=== PATIENT | male | born 1950 | race Caucasian/White ===

== ENCOUNTER 2019-12-26 19:20 | Inpatient (IN) | payer MEDICARE ==
[~2019-12-26 19:20] MED LIST: Iopamidol-370 76% 500 ML 1 ML ONE
[2019-12-26 19:47] LABS: #Basophils 0.1 thou/uL (0.0-0.2); #Eosinphils 0.2 thou/uL (0.0-0.7); #Lymphocytes 2.2 thou/uL (1.20-3.40); #Monocytes 0.8 thou/uL (0.11-0.59); #Neutrophils 6.3 thou/uL (1.40-6.50); %Basophils 0.9 % (0.0-1.0); %Eosinophils 2.4 % (0.0-10.0); %Lymphocytes 23.2 % (21.0-51.0); %Monocytes 8.1 % (0.0-10.0); %Neutrophils 65.5 % (42.0-75.0); Hemoglobin 15.6 g/dL (14.0-18.0); Mean Corpuscular HGB CONC 33.4 g/dL (32.0-36.0); Mean Corpuscular Hemoglobin 32.3 pg (27.0-31.0); Mean Corpuscular Volume 96.5 fL (78.0-98.0); Mean Platelet Volume 8.1 fL (7.4-10.4); Platelet Count 231 thou/uL (130-400); RBC Distribution Width 11.9 % (11.5-14.5); Red Blood Cell (RBC) Count 4.84 mill/uL (4.70-6.10); White Blood Cell (WBC) Count 9.7 thou/uL (4.8-10.8)
[2019-12-26 19:52] LABS: INR-International Normal Ratio 0.9; PTT 26.4 SEC (22.9-36.1)
[2019-12-26 20:07] LABS: ALT (SGPT) 21 U/L (8-55); AST (SGOT) 14 U/L (5-34); Albumin 4.1 g/dL (3.4-4.8); Alkaline Phosphatase 83 U/L (40-110); Anion Gap 14 mmol/L (10-20); BUN (Urea Nitrogen) 13 mg/dL (8.4-25.7); Bilirubin, Total 0.4 mg/dL (0.2-1.2); Calc. Creatinine Clearance 0 mL/min (70-130); Calcium 9.3 mg/dL (7.8-10.44); Carbon Dioxide 26 mmol/L (23-31); Chloride 105 mmol/L (98-107); Estimated GFR-MDRD 69; Globulin 2.8 g/dL (2.4-3.5); Glucose 110 mg/dL (80-115); Potassium 3.8 mmol/L (3.5-5.1); Protein, Total 6.9 g/dL (5.8-8.1); Sodium 141 mmol/L (136-145)
--- NOTE | 2019-12-26 20:17 | PDOC.FPRHP ---
- History of Present Illness Chief Complaint: Left sided weakness History of Present Illness: This is a 69 yo male with a pmh of spinocerebellar ataxia who presents to the ED with a cc of left sided weakness.H michlee states these symptoms started at 1030 this AM and the symptoms presented suddenly. He states he was walking the dog and his left side became weak and he started dragging his foot on the left feet by the end of the walk. He states his symptoms have improved at this time. He reports he has a baseline instablility and slurred speech but this is much worse. He as never had anything like this. He reports word finding difficulty in that he can think of what he wants to say but is sluggish and slurred at getting them out. ED Course: Aspirin 325 mg - History PMHx: Spinocerebellar ataxia PSHx: None FHx: Noncontributory Social: Smokes herbs, denies alcohol or tobacco use - Review of Systems General: denies: fever/chills, weight/appetite/sleep changes, night sweats, fatigue Eyes: denies: eye pain, vision changes ENT: denies: nasal congestion, rhinorrhea Respiratory: denies: cough, congestion, shortness of breath, exercise intolerance Cardiovascular: denies: chest pain, palpitation, edema, paroxysmal nocturnal dyspnea, orthopnea Gastrointestinal: denies: nausea, vomiting, diarrhea, constipation, abdominal pain, GI bleeding Genitourinary: denies: incontinence, dysuria Skin: denies: rashes, lesions Musculoskeletal: denies: pain, tenderness, stiffness Neurological: reports: weakness (left side), other (dysarthria). denies: numbness, syncope, seizure Psychological: denies: anxiety, depression - Vital signs BP: 14/-73 HR: 77 RR: 17 Tmax: 98.5 Pox: 98% on ra Wt: 72 kg - Physical Exam Constitutional: NAD, awake, alert and oriented, well developed HEENT: normocephalic and atraumatic, PERRLA, EOMI, grossly normal vision, grossly normal hearing, MMM Neck: supple, FROM, no JVD Chest: no-tender to palpation, no lesions Heart: RRR, normal S1/S2, no murmurs/rubs/gallops, pulses present, no edema Lungs: CTAB, no respiratory distress, good air movement, no rales/rhonchi, no wheezing, no retractions Abdomen: soft, non-tender, bowel sounds present, no masses/distention Musculoskeletal: normal structure, normal tone Neurological: CN II-XII intact, normal sensation -Neurological: Pt had 4/5 strength globally, HINTS exam was negative, cerebellar testing in the upper extremity was slow bilaterally but accurate, no changes in sensation, speech appeared slurred Skin: good turgor, capillary refill <2 seconds Heme/Lymphatic: no unusual bruising or bleeding Psychiatric: normal mood and affect FMR H&P: Results - Labs Result Diagrams: 12/26/19 19:32 12/26/19 19:32 Lab results: WBC 9.7 thou/uL (4.8-10.8) 12/26/19 19:32 Hgb 15.6 g/dL (14.0-18.0) 12/26/19 19:32 Hct 46.7 % (42.0-52.0) 12/26/19 19:32 MCV 96.5 fL (78.0-98.0) 12/26/19 19:32 Plt Count 231 thou/uL (130-400) 12/26/19 19:32 Neutrophils % 65.5 % (42.0-75.0) 12/26/19 19:32 Sodium 141 mmol/L (136-145) 12/26/19 19:32 Potassium 3.8 mmol/L (3.5-5.1) 12/26/19 19:32 Chloride 105 mmol/L (98-107) 12/26/19 19:32 Carbon Dioxide 26 mmol/L (23-31) 12/26/19 19:32 BUN 13 mg/dL (8.4-25.7) 12/26/19 19:32 Creatinine 1.07 mg/dL (0.7-1.3) 12/26/19 19:32 Glucose 110 mg/dL (80-115) 12/26/19 19:32 Calcium 9.3 mg/dL (7.8-10.44) 12/26/19 19:32 Total Bilirubin 0.4 mg/dL (0.2-1.2) 12/26/19 19:32 AST 14 U/L (5-34) 12/26/19 19:32 ALT 21 U/L (8-55) 12/26/19 19:32 Alkaline Phosphatase 83 U/L (40-110) 12/26/19 19:32 Serum Total Protein 6.9 g/dL (5.8-8.1) 12/26/19 19:32 Albumin 4.1 g/dL (3.4-4.8) 12/26/19 19:32 - EKG Interpretation EKG: NSR, 75 BPM - Radiology Interpretation CT scan - head Status: report reviewed by me (CT/CTA negative for acute intracranial processes) FMR H&P: A/P - Problem List (1) TIA (transient ischemic attack) Current Visit: Yes Status: Acute Code(s): G45.9 - TRANSIENT CEREBRAL ISCHEMIC ATTACK, UNSPECIFIED - Plan TIA vs CVA r/o -Admit to stroke with telemetry -S/P aspirin -Improving physical findings points to TIA -Outside the window for tPA but would not likely be a candidate based on symptom severity -Pending AM FLP, MRI -Consult Speech, OT/PT -Pt does not have indication for TTE at this time given his lack of cardiac history and this being his first TIA/CVA r/o. I would consider ordering this if his MRI showed bilateral ischemic involvement Spinocerebellar ataxia -Appears stable Code: Full Prophylaxis: None Family: None at bedside Fluids: SL Diet: NPO until bedside swallow, then HH diet Disposition: DC in 1-2 days PCP: none, CC FMR H&P: Upper Level - Plan Date/Time: 12/26/192011 I, [], have evaluated this patient and agree with findings/plan as outlined by operations intern resident. Pertinent changes/additions are listed here. Addendum - Attending - Attending Attestation Date/Time: 12/27/19 0030 I personally evaluated the patient and discussed the management with Dr. Jain. I agree with the History, Examination, Assessment and Plan documented above with any addition or exceptions noted below.
[2019-12-26] MEDS ORDERED: Aspirin 325 MG TAB ONE (20:27)
--- NOTE | 2019-12-26 20:30 | CT ---
CT OF THE BRAIN WITHOUT CONTRAST: 12/26/19 COMPARISON: None. HISTORY: Stroke alert with facial drooping and slurred speech since 9 o'clock this morning. TECHNIQUE: Multiple contiguous axial images were obtained in a CT of the brain without contrast. FINDINGS: there are a few scattered hypodensities in the subcortical and periventricular white matter likely se condary to small vessel ischemic disease. No large confluent infarction is seen. There is no evidence of hydrocephalus, intracranial hemorrhage, or extra-axial fluid collection. The calvarium and overlying soft tissues are unremarkable. The visualized paranasal sinuses and masto id air cells are well aerated. IMPRESSION: No evidence of acute intracranial abnormality. Dr. He notified of the findings at 7:38 p.m. on 12/26/19. POS: KENIA
--- NOTE | 2019-12-26 20:43 | CT ---
CTA OF THE NECK WITH CONTRAST CTA OF THE HEAD WITH CONTRAST 12/26/19 HISTORY: Facial drooping and slurred speech. Left sided weakness. TECHNIQUE: 1. Multiple contiguous axial images were obtained in a CTA of the neck with contrast. 3D sagitta l and coronal MIP reformats were performed. 2. Multiple contiguous axial images were obtained in a CTA of the head with contrast. 3D sagitta l and coronal MIP reformats were performed. FINDINGS: CTA NECK: The lung apices are unremarkable. No cervical adenopathy is seen. No mucosal abnormality is seen. Deg enerative changes are seen in the spine. Both subclavian arteries are patent without significant atherosclerotic disease. The common carotid a rteries show no significant ostial atherosclerotic disease. There is a small amount of plaque in the proximal aspect of both internal carotid arteries. There is approximately 20% stenosis of the proximal right internal carotid artery and less than 10% stenosis o f the proximal left internal carotid artery per NASCET criteria. The distal aspect of both cervical i nternal carotid arteries are unremarkable. Both vertebral arteries are normal in appearance without significant atherosclerotic disease. CTA HEAD: Both intracranial internal carotid arteries are normal in appearance and branch into normal appearing anterior and middle cerebral arteries. There is no evidence of focal stenosis, occlusion or aneurysm al dilatation in the anterior circulation. Both vertebral arteries form a normal appearing basilar artery. The posterior cerebral arteries and c erebellar arteries are patent. There is no evidence of focal stenosis, occlusion, or aneurysmal dilat ation in the posterior circulation. The left vertebral artery is dominant. IMPRESSION: 1. Mild atherosclerotic disease in the proximal aspects of both internal carotid arteries withou t evidence of hemodynamically significant stenosis. 2. No evidence of significant CTA abnormality of the head. POS: KENIA
[2019-12-26] MEDS ORDERED: Acetaminophen 650 MG Suppository PR PRN (21:41)
[2019-12-26] MEDS ORDERED: Ondansetron ODT 4 MG TAB PO PRN (21:41)
[2019-12-26] MEDS ORDERED: Ondansetron PF 4 MG/2 ML Vial IVP PRN (21:41)
[2019-12-26] MEDS ORDERED: Acetaminophen 325 MG TAB PO PRN (21:41)
[2019-12-26] MEDS ORDERED: Atorvastatin Calcium 40 MG TAB PO SCH (22:00)
[2019-12-27 03:52] VITALS: BMI 31.3
[2019-12-27 05:02] LABS: Cardiac Risk 4.5 (Less than 4.5)
[2019-12-27] MEDS ORDERED: Lorazepam 0.5 MG TAB PO SCH (05:45)
--- NOTE | 2019-12-27 06:06 | PDOC.FM ---
- Subjective Subjective: Pt expresses that he feels his symptoms are much improved since yesterday. Unsure if he still is experiencing foot drop as he has not ambulated since admission. Feels his speech is essentially at baseline. Denies being on any anti -hypertensives. - Objective Vital Signs & Weight: Vital Signs (12 hours) Temp Pulse Resp BP Pulse Ox 12/27/19 00:28 98 F 63 16 185/100 H 94 L Weight Weight 94.755 kg Result Diagrams: 12/26/19 19:32 12/26/19 19:32 Phys Exam - Physical Examination Constitutional: NAD HEENT: moist MMs Neck: full ROM Respiratory: clear to auscultation bilateral Cardiovascular: RRR Slightly slurred speech (baseline per pt), mild dysmetria of BUE Normal strength testing throughout Psychiatric: normal affect, A&O x 3 Skin: no rash Dx/Plan (1) TIA (transient ischemic attack) Code(s): G45.9 - TRANSIENT CEREBRAL ISCHEMIC ATTACK, UNSPECIFIED Status: Acute (2) Spinocerebellar ataxia Code(s): G11.8 - OTHER HEREDITARY ATAXIAS Status: Acute - Plan Plan: TIA vs CVA r/o vs Spinocerebellar Ataxia Exacerbation -Head CT and Head/Neck CTA only significant for mild atherosclerosis of bilateral prox ICA -Improved sx favors TIA -Pending MRI and Echo -Consult Speech, OT/PT -ASA Hypertension - No previous diagnosis - Will allow 24 hr permissive HTN - Then initiate Rx to normalize Code: Full Prophylaxis: None Family: None at bedside Fluids: SL Diet: HH Disposition: DC in 1-2 days PCP: none, CC Addendum - Attending - Attending Attestation Date/Time: 12/27/19 1020 I personally evaluated the patient and discussed the management with Dr. Nieto. I agree with the History, Examination, Assessment and Plan documented above with any addition or exceptions noted below. Patient here for acute neuro deficits in setting of chronic neuro disease. MRI pending. Await those results, consider TIA versus CVA, or flare in his chronic spinocerebellar disease. He is now at baseline. Likely neuro consult as this patient has not followed with them outpatient [facility].
[2019-12-27] MEDS: Aspirin 81 mg Enteric Coated Tablet PO SCH (08:32)
[2019-12-27] MEDS: Enoxaparin Sodium 40 MG/0.4 ML SYRINGE SC SCH (08:33)
[2019-12-27] MEDS: Lisinopril 10 MG TAB PO SCH (08:33)
[2019-12-27] MEDS ORDERED: Lisinopril 10 MG TAB PO SCH (09:00)
--- NOTE | 2019-12-27 11:44 | MRI ---
EXAM: MRI Brain WO Con PROVIDED CLINICAL HISTORY: Left-sided weakness. TIA COMPARISON: CT head on 12/26/2019. FINDINGS: There is a linear area of restricted diffusion seen within the right frontal lobe medeiros radiata at t he level of the body of the lateral ventricles and involving the most superior aspect posterior limb right internal capsule. This may represent a more subacute white matter infarction as opposed to acute infarction. No additional restricted diffusion is seen to suggest additional areas of acute infarction. A few minimal scattered punctate areas of increased FLAIR and T2-weighted signal intensity are seen i n the periventricular and subcortical white matter which are nonspecific but likely reflective of mild chronic small vessel ischemic changes. The septum pellucidum and third ventricle are in the midline. The ventricular system is normal in siz e, shape, and position. Mild cerebral and cerebellar volume loss is present. Appropriate flow voids are demonstrated in the large intracranial vessels at the base of the brain. The orbits, paranasal sinuses, and skull base have a normal MRI appearance. IMPRESSION: 1. Small acute to subacute right frontal lobe white matter infarction. No acute cortical infarction i s seen. 2. Mild chronic small vessel ischemic changes. 3. Cerebral and cerebellar volume loss.
[2019-12-27] MEDS: Atorvastatin Calcium 40 MG TAB PO SCH (20:50)
--- NOTE | 2019-12-28 05:17 | PDOC.FM ---
- Subjective Subjective: Patient was resting comfortably in bed at the time of evaluation and denied any acute overnight events, particularly with regard to worsening neurologic defecits, chest pain or SOB. - Objective Vital Signs & Weight: Vital Signs (12 hours) Temp Pulse Resp BP Pulse Ox 12/28/19 04:42 93 L 12/28/19 03:10 97.5 F L 75 20 126/78 93 L 12/27/19 23:10 97.9 F 77 20 126/87 96 12/27/19 19:02 98.2 F 84 20 134/82 93 L Weight Weight 94.755 kg I&O: 12/26/19 12/27/19 12/28/19 06:59 06:59 06:59 Intake Total 480 Output Total 500 120 Balance -500 360 Result Diagrams: 12/26/19 19:32 12/28/19 05:56 Phys Exam - Physical Examination Constitutional: NAD HEENT: PERRLA, moist MMs, sclera anicteric, oral pharynx no lesions Neck: no nodes, supple, full ROM Respiratory: no wheezing, no rales, no rhonchi, clear to auscultation bilateral Cardiovascular: RRR, no significant murmur, no rub Gastrointestinal: soft, non-tender, no distention, positive bowel sounds Musculoskeletal: no edema, pulses present Neurological: moves all 4 limbs Decreased dethistler operator strength and leg raise on the left Lymphatic: no nodes Psychiatric: normal affect, A&O x 3 Skin: no rash Dx/Plan (1) Spinocerebellar ataxia Code(s): G11.8 - OTHER HEREDITARY ATAXIAS Status: Acute (2) CVA (cerebral vascular accident) Code(s): I63.9 - CEREBRAL INFARCTION, UNSPECIFIED Status: Acute - Plan Plan: Patient is a 69 y/o male with a PMH significant for Spinocerebellar Ataxia who presents for evaluation of worsening left-sided weakness and difficulty w/ word finding. 1. CVA -CT Brain/CTA Head & Neck: Mild atherosclerosis of bilateral proximal ICAs -MRI: Frontal Infarct, acute vs. sub-acute -Echo: EF(60-65%) -Neuro: Consulted, recs appreciated -Speech Therapy: Consulted, recs appreciated -PT/OT: Recs appreciated -Case Management: s/p Acute Care Screen ordered, recs appreciated -Statin, ASA 2. HTN -SBPs in the 160s to 180s upon admission -Currently well-controlled -Initiated Lisinopril 10 mg PO daily -Will continue to monitor and titrate medication regimen as needed 3. Spinocerebellar Ataxia -Known diagnosis since ~1999 -Patient does not currently receive medication or therapy -Will continue to monitor closely PCP: CC Code: Full Diet: Heart Healthy VTE PPx: None Fluids: SL Diet: HH Dispo: Patient is currently stable and admitted to the Stroke Floor for ongoing treatment of CVA. Will await recs as per above and continue to monitor BP closely. Expected LOS < 48H. Addendum - Attending - Attending Attestation Date/Time: 12/28/19 5701 I personally evaluated the patient and discussed the management with Dr. Rosen I agree with the History, Examination, Assessment and Plan documented above with any addition or exceptions noted below. Patient is a 69 y/o male with a PMH significant for Spinocerebellar Ataxia found to have CVA. Pending inpatient rehab placement. ASA, Statin. Will await Neurology recommendations and anticipate transfer to inpatient rehab.
[2019-12-28 06:26] LABS: Anion Gap 14 mmol/L (10-20); BUN (Urea Nitrogen) 15 mg/dL (8.4-25.7); Calc. Creatinine Clearance 98 mL/min (70-130); Calcium 8.9 mg/dL (7.8-10.44); Carbon Dioxide 24 mmol/L (23-31); Chloride 104 mmol/L (98-107); Estimated GFR-MDRD 76; Glucose 92 mg/dL (80-115); Potassium 3.5 mmol/L (3.5-5.1); Sodium 138 mmol/L (136-145)
[2019-12-28] MEDS: Lisinopril 10 MG TAB PO SCH (08:18)
[2019-12-28] MEDS: Aspirin 81 mg Enteric Coated Tablet PO SCH (08:18)
[2019-12-28] MEDS: Enoxaparin Sodium 40 MG/0.4 ML SYRINGE SC SCH (08:18)
--- NOTE | 2019-12-28 13:02 | CON ---
DATE OF CONSULTATION: 12/28/2019 REASON FOR CONSULTATION: Left-sided weakness. HISTORY OF PRESENT ILLNESS: Mr. Al Brock is a 69-year-old male with medical history significant for spinocerebellar ataxia, presented to the emergency room with complaint of left-sided weakness. Per the patient, he was walking the dog and then his left side became weak, and he started dragging his left foot. This happened around 9 a.m. on 12/26/2019, and then when he came to the house at around 10:30 a.m., he felt much better, but still feels weak on the left side from the baseline. He denies any focal numbness, nausea, vomiting, dizziness, vertigo, or headache, associated with the episode. He does admit to having word-finding difficulty and slurred speech, which resolved within an hour and a half. In the emergency room, he was given aspirin and admitted for further stroke workup. PAST MEDICAL HISTORY: Spinocerebellar ataxia. PAST SURGICAL HISTORY: None. FAMILY HISTORY: No family history of stroke. SOCIAL HISTORY: Smokes but denies alcohol or illegal drug use. ALLERGIES: Oats REVIEW OF SYSTEMS: All 10 systems were reviewed and were negative except for pertinent positive mentioned in the HPI. MEDICATIONS: None - Objective Vital Signs & Weight: Vital Signs (12 hours) Temp Pulse Resp BP Pulse Ox 12/28/19 04:42 93 L 12/28/19 03:10 97.5 F L 75 20 126/78 93 L 12/27/19 23:10 97.9 F 77 20 126/87 96 12/27/19 19:02 98.2 F 84 20 134/82 93 L Weight Weight 94.755 kg I&O: 12/26/19 12/27/19 12/28/19 06:59 06:59 06:59 Intake Total 480 Output Total 500 120 Balance -500 360 - Labs Result Diagrams: 12/26/19 19:32 12/26/19 19:32 Lab results: WBC 9.7 thou/uL (4.8-10.8) 12/26/19 19:32 Hgb 15.6 g/dL (14.0-18.0) 12/26/19 19:32 Hct 46.7 % (42.0-52.0) 12/26/19 19:32 MCV 96.5 fL (78.0-98.0) 12/26/19 19:32 Plt Count 231 thou/uL (130-400) 12/26/19 19:32 Neutrophils % 65.5 % (42.0-75.0) 12/26/19 19:32 Sodium 141 mmol/L (136-145) 12/26/19 19:32 Potassium 3.8 mmol/L (3.5-5.1) 12/26/19 19:32 Chloride 105 mmol/L (98-107) 12/26/19 19:32 Carbon Dioxide 26 mmol/L (23-31) 12/26/19 19:32 BUN 13 mg/dL (8.4-25.7) 12/26/19 19:32 Creatinine 1.07 mg/dL (0.7-1.3) 12/26/19 19:32 Glucose 110 mg/dL (80-115) 12/26/19 19:32 Calcium 9.3 mg/dL (7.8-10.44) 12/26/19 19:32 Total Bilirubin 0.4 mg/dL (0.2-1.2) 12/26/19 19:32 AST 14 U/L (5-34) 12/26/19 19:32 ALT 21 U/L (8-55) 12/26/19 19:32 Alkaline Phosphatase 83 U/L (40-110) 12/26/19 19:32 Serum Total Protein 6.9 g/dL (5.8-8.1) 12/26/19 19:32 Albumin 4.1 g/dL (3.4-4.8) 12/26/19 19:32 - EKG Interpretation EKG: NSR, 75 BPM - Radiology Interpretation CT scan - head Status: report reviewed by me (CT/CTA negative for acute intracranial processes) PHYSICAL EXAMINATION: CVS: Regular rate and rhythm. CHEST: Clear. ABDOMEN: Soft. NECK: No carotid bruit. NEUROLOGIC: Mental status; the patient is alert and orient to person, place, and time. Speech dysarthria. Cranial nerves 2 through 12 are intact. Motor; strength is 4+/5 on the left and 5/5 on the right. Cerebellar, slower on the left secondary to mild weakness. Reflexes 2+ bilaterally. Gait not tested, it was deferred due to the patient's safety reasons. DATA REVIEWED: I reviewed the labs which include CBC and CMP, which were essentially unremarkable. EKG showed normal sinus rhythm. I reviewed the CT scan and the CTA of the head and neck, which were negative. ASSESSMENT AND PLAN: Mr. Al Brock is consulted for left-sided weakness and slurred speech. Most of his symptoms resolved within an hour and a half, but he still has mild weakness on the left. MRI of the brain reviewed, which was consistent with a small acute to subacute right frontal lobe white matter infarction and mild chronic small-vessel changes. Echocardiogram report reviewed, which showed ejection fraction 60% to 65%, normal left atrium size. No thrombus is noted in the cardiac chambers. Neuro checks every 4 hours. Continue aspirin and statin for secondary stroke prevention. PT/OT/speech. Continue home medications. Continue medical management per primary team. We will continue to follow. Thank you for the consult. Job ID: [id number] MTDD
[2019-12-28] MEDS: Atorvastatin Calcium 40 MG TAB PO SCH (21:36)
--- NOTE | 2019-12-29 05:29 | PDOC.FM ---
- Subjective Subjective: Patient was resting comfortably in his bed at the time of evaluation. He denied any acute overnight events. - Objective Vital Signs & Weight: Vital Signs (12 hours) Temp Pulse Resp BP Pulse Ox 12/29/19 04:01 94 L 12/29/19 03:32 98.2 F 79 18 122/78 93 L 12/28/19 23:26 98.2 F 74 16 137/78 93 L 12/28/19 20:00 98.7 F 81 14 138/73 91 L Weight Weight 91.8 kg I&O: 12/27/19 12/28/19 12/29/19 06:59 06:59 06:59 Intake Total 480 240 Output Total 500 120 100 Balance -500 360 140 Result Diagrams: 12/26/19 19:32 12/28/19 05:56 Phys Exam - Physical Examination Constitutional: NAD HEENT: PERRLA, moist MMs, sclera anicteric, oral pharynx no lesions Neck: no nodes, supple, full ROM Respiratory: no wheezing, no rales, no rhonchi, clear to auscultation bilateral Cardiovascular: RRR, no significant murmur, no rub Gastrointestinal: soft, non-tender, no distention, positive bowel sounds Musculoskeletal: no edema, pulses present Mildly decreased product development actuary on left, mildly decreased strength of flexion of LLE Neurological: normal sensation, moves all 4 limbs Lymphatic: no nodes Psychiatric: normal affect Skin: no rash Dx/Plan (1) Spinocerebellar ataxia Code(s): G11.8 - OTHER HEREDITARY ATAXIAS Status: Acute (2) CVA (cerebral vascular accident) Code(s): I63.9 - CEREBRAL INFARCTION, UNSPECIFIED Status: Acute - Plan Plan: Patient is a 69 y/o male with a PMH significant for Spinocerebellar Ataxia who presents for evaluation of worsening left-sided weakness and difficulty w/ word finding. 1. CVA -CT Brain/CTA Head & Neck: Mild atherosclerosis of bilateral proximal ICAs -MRI: Frontal Infarct, acute vs. sub-acute -Echo: EF(60-65%) -Neuro: Consulted, recs appreciated -Speech Therapy: Consulted, recs appreciated -PT/OT: Consulted, recommended In-Patient Rehab -Case Management: s/p Acute Care Screen and In-Patient Rehab referral ordered, recs appreciated -Statin, ASA 2. HTN -SBPs in the 160s to 180s upon admission - currently well-controlled -Initiated Lisinopril 10 mg PO daily -Will continue to monitor and titrate medication regimen as needed 3. Spinocerebellar Ataxia -Known diagnosis since ~1999 -Patient does not currently receive medication or therapy -Will continue to monitor closely PCP: CC Code: Full Diet: Heart Healthy VTE PPx: None Fluids: SL Diet: HH Dispo: Patient is currently stable and admitted to the Stroke Floor for ongoing treatment of CVA. Will await recs as per above and continue to monitor BP closely. Expected LOS < 24H. Addendum - Attending - Attending Attestation Date/Time: 12/29/19 2860 I personally evaluated the patient and discussed the management with Dr. Rosen I agree with the History, Examination, Assessment and Plan documented above with any addition or exceptions noted below. Patient is a 69 y/o male with a PMH significant for Spinocerebellar Ataxia found to have CVA. Patient refused inpatient rehab placement but agreeable to outpt rehab. OK to d/c home with f/u as OP. Continue ASA, Statin. RA Strange
[2019-12-29] MEDS: Aspirin 81 mg Enteric Coated Tablet PO SCH (08:58)
[2019-12-29] MEDS: Lisinopril 10 MG TAB PO SCH (08:58)
[2019-12-29] MEDS: Enoxaparin Sodium 40 MG/0.4 ML SYRINGE SC SCH (08:58)
[2019-12-29 15:35] VITALS: BP 134/90; TEMP 98.4
--- NOTE | 2019-12-30 01:40 | DIS ---
DATE OF ADMISSION: 12/27/2019 DATE OF DISCHARGE: 12/29/2019 RESIDENT: Pako Rosen MD ADMITTING ATTENDING: Hany Alberto MD DISCHARGE ATTENDING: Dami Strange MD CONSULTS: Vashti Hutchison MD, Neurology. PROCEDURES PERFORMED: Brain CT revealing no evidence of acute intracranial abnormality. CT angiography indicating mild atherosclerotic disease in the proximal aspect of both internal carotid arteries without evidence of hemodynamically significant stenoses. No evidence of significant CTA abnormality. Brain MRI, small acute subacute right frontal lobe white matter infarction, mild chronic small-vessel ischemic changes, cerebellar and cerebral volume loss. PRIMARY DIAGNOSIS: Cerebrovascular accident. SECONDARY DIAGNOSES: Hypertension, spinocerebellar ataxia. DISCHARGE MEDICATIONS: 1. Aspirin 81 mg p.o. daily. 2. Atorvastatin 40 mg p.o. daily. 3. Lisinopril 10 mg p.o. daily. DISCONTINUED MEDICATIONS: 1. Acetaminophen 650 mg p.o. q.4 hours p.r.n. 2. Lovenox 40 mg subcutaneous daily. HISTORY OF PRESENT ILLNESS/HOSPITAL COURSE: The patient is a 69-year-old male with a past medical history significant for spinocerebellar ataxia, presented to the ED with a chief complaint of left-sided weakness. The patient stated that the symptoms started at approximately 10:30 in the morning prior to presentation and that they began suddenly. The patient states that he was walking his dog and the left side became weak and he started dragging his foot on the left. He was experiencing some certain difficulty walking. His symptoms began to improve by the time he returned home. However, he reports baseline instability and slurred speech due to his previously diagnosed spinocerebellar ataxia, but he stated that this episode was much worse. He also admitted to difficulty with word finding. Upon presentation to the ER, he was given 325 mg of aspirin and subsequently transferred to the Stroke Unit. While in a stroke unit, the patient was evaluated and additional imaging modalities were performed which are mentioned elsewhere in document. The patient was evaluated by Speech Therapy, PT and OT, and his condition began to improve as such he was subsequently prepped for discharge to home with outpatient physical and occupational therapy because the patient is the primary caregiver for his , who is unable to do without her attending inpatient rehabilitation prior to discharge. LABORATORY ANALYSIS: Revealed a white blood cell count of 9.7, hemoglobin 15.6, hematocrit 46.7, platelet count 231. Coagulation panel revealed a PT of 12, INR 0.9, APTT of 26.4. Chem panel revealed a sodium of 138, potassium 3.5, chloride 104, carbon dioxide 24, BUN 15, creatinine 0.98, glucose 92, calcium 8.9, AST 14, ALT 21, troponin 0.01, triglycerides 149, cholesterol 170, LDL 102, and HDL 38. DISPOSITION: Stable. DISCHARGE INSTRUCTIONS: 1. Location: Home. 2. Diet: Heart healthy. 3. Activity: No restrictions. 4. Followup: The patient will be evaluated further as an outpatient with [facility] physical therapy later in the week. Additionally, the patient was encouraged to follow up with primary care provider in 3 to 4 weeks in order to discuss his most recent hospitalization. Job ID: [id number]
--- NOTE | 2019-12-30 15:24 | EKG ---
Test Reason : Blood Pressure : / mmHG Vent. Rate : 075 BPM Atrial Rate : 075 BPM P-R Int : 168 ms QRS Dur : 100 ms QT Int : 392 ms P-R-T Axes : 060 088 070 degrees QTc Int : 437 ms Normal sinus rhythm Normal ECG Confirmed by DARIO OLSEN, MICHAEL Solomon ([id number]), script editor XOCHILT LITTLE ([id number]) on 12/30/2019 3:23:49 PM Referred By: Confirmed By:MICHAEL BISHOP MD
== END 2019-12-29 16:07 | disposition home or self-care (01) | DRG 65 ==
LOC: ERS 19:20 → INTOOBSV 21:39 → 2SE 21:39 → OBSVTOIN 12-27 14:21
PROVIDERS: ADMIT Emergency Medicine; ATTEND Emergency Medicine
DX: I63.9 Cerebral infarction, unspecified (principal); G11.8 Other hereditary ataxias; G81.94 Hemiplegia, unspecified affecting left nondominant side; F17.200 Nicotine dependence, unspecified, uncomplicated; I10 Essential (primary) hypertension; R47.81 Slurred speech
CPT/HCPCS: 36415; 36416; 70450; 70496; 70498; 70551; 80048; 80053; 80061; 84484; 85025; 85610; 85730; 93005; 93306; J1650; Q9967

== ENCOUNTER 2020-07-18 14:30 | Observation (INO) | payer MEDICARE ==
--- NOTE | 2020-07-18 15:33 | RAD ---
Chest AP view INDICATION: Generalized weakness COMPARISON: None FINDINGS: Lungs: The lungs are clear Cardiac silhouette: The cardiomediastinal silhouette appears within normal limits. Pulmonary vasculature: Normal Pleural spaces: No pleural effusion or pneumothorax is demonstrated. Upper abdomen: No abnormality seen. Osseous structures: No acute osseous abnormality. Additional findings: None. IMPRESSION: No acute cardiopulmonary abnormality.
[2020-07-18] MEDS ORDERED: Adenosine 6 MG/2 ML VIAL ONE ×2 (15:42→17:04)
[2020-07-18 15:48] LABS: #Basophils 0.1 thou/uL (0.0-0.2); #Eosinphils 0.3 thou/uL (0.0-0.7); #Lymphocytes 2.2 thou/uL (1.20-3.40); #Monocytes 1.1 thou/uL (0.11-0.59); #Neutrophils 9.3 thou/uL (1.40-6.50); %Basophils 0.7 % (0.0-1.0); %Eosinophils 2.7 % (0.0-10.0); %Lymphocytes 16.7 % (21.0-51.0); %Monocytes 8.3 % (0.0-10.0); %Neutrophils 71.6 % (42.0-75.0); Hemoglobin 16.8 g/dL (14.0-18.0); Mean Corpuscular HGB CONC 32.4 g/dL (32.0-36.0); Mean Corpuscular Hemoglobin 32.1 pg (27.0-31.0); Mean Corpuscular Volume 98.9 fL (78.0-98.0); Mean Platelet Volume 8.1 fL (7.4-10.4); Platelet Count 269 thou/uL (130-400); RBC Distribution Width 12.1 % (11.5-14.5); Red Blood Cell (RBC) Count 5.25 mill/uL (4.70-6.10)
[2020-07-18 16:07] LABS: ALT (SGPT) 30 U/L (8-55); AST (SGOT) 21 U/L (5-34); Albumin 4.2 g/dL (3.4-4.8); Alkaline Phosphatase 99 U/L (40-110); Anion Gap 17 mmol/L (10-20); BUN (Urea Nitrogen) 17 mg/dL (8.4-25.7); Bilirubin, Total 0.5 mg/dL (0.2-1.2); Calc. Creatinine Clearance 0 mL/min (70-130); Calcium 9.3 mg/dL (7.8-10.44); Carbon Dioxide 26 mmol/L (23-31); Chloride 103 mmol/L (98-107); Globulin 2.9 g/dL (2.4-3.5); Glucose 135 mg/dL (80-115); Lipase 46 U/L (8-78); Potassium 4.3 mmol/L (3.5-5.1); Protein, Total 7.1 g/dL (5.8-8.1); Sodium 142 mmol/L (136-145)
[2020-07-18] MEDS ORDERED: Aspirin Chewable 81 MG TAB ONE (16:29)
--- NOTE | 2020-07-18 17:19 | PDOC.FPRHP ---
- History of Present Illness Chief Complaint: Palpitations History of Present Illness: Patient is a 70 yo M, PMH of CVA, spinocerebellar ataxia, HTN. He states that he started having palpiations around 11am with associated central chest pain, shortness of breath, sweating and nausea. Patient's drove him to the ER. He states that he had a similar episode that happened 8 years ago. He saw a doctor but does not think the doctor did anything or diagnose anything. Denies fever/chills, abdominal pain, urinary symptoms, vision changes. ED Course: Patient was in SVT in the 150s-170s on arrival to the ED. He was given a push of 6 mg of adenosine. He was given a liter of fluids. He successfully cardioverted to sinus tachycardia. - Allergies/Adverse Reactions Allergies Allergy/AdvReac Type Severity Reaction Status Date / Time oats Allergy Verified 12/27/19 05:42 - Home Medications Medication Instructions Recorded Confirmed Type Acetaminophen [Tylenol] 325 mg PO PRN PRN 12/27/19 07/18/20 History Aspirin [Ecotrin Low Strength] 81 mg PO DAILY 30 Days #30 tab 12/29/19 07/18/20 Rx Atorvastatin Calcium [Lipitor] 40 mg PO HS 30 Days #30 tab 12/29/19 07/18/20 Rx Lisinopril [Zestril] 10 mg PO DAILY 30 Days #30 tab 12/29/19 07/18/20 Rx Tamsulosin HCl 0.4 mg PO DAILY 07/18/20 07/18/20 History - History PMHx: H/o CVA, spinocerebellar ataxia, HTN, HLD PSHx: tonsillectomy, basal cell carcinoma removal FHx: [place] in father in 60s Social: Smokes marijuana once or twice/day, no other drugs, no alcohol or tobacco use - Review of Systems General: denies: fever/chills, weight/appetite/sleep changes Eyes: denies: eye pain, vision changes ENT: denies: nasal congestion, rhinorrhea Respiratory: reports: shortness of breath. denies: cough, congestion Cardiovascular: reports: chest pain, palpitation. denies: edema Gastrointestinal: reports: nausea. denies: vomiting, diarrhea, constipation, abdominal pain Genitourinary: denies: incontinence, dysuria Skin: denies: rashes, lesions Musculoskeletal: denies: pain, tenderness Neurological: reports: weakness. denies: numbness, syncope Psychological: denies: anxiety, depression - Vital signs BP: 111/73, Pulse: 101, Resp: 16, O2 sat: 96 on (Room Air), Wt: 95kg - Physical Exam Constitutional: NAD, awake, alert and oriented, well developed HEENT: normocephalic and atraumatic, PERRLA, EOMI, other (dry mucous membranes) Neck: supple, FROM Heart: no murmurs/rubs/gallops, other (tachycardic) Lungs: CTAB, no respiratory distress, no wheezing Abdomen: soft, non-tender, bowel sounds present Musculoskeletal: normal structure, normal tone Neurological: no focal deficit, CN II-XII intact Skin: no rash/lesions Heme/Lymphatic: no unusual bruising or bleeding, no purpura, no petechia Psychiatric: normal mood and affect, good judgment and insight, intact recent and remote memory FMR H&P: Results - Labs Result Diagrams: 07/19/20 04:19 07/19/20 04:19 Lab results: WBC 13.0 thou/uL (4.8-10.8) H 07/18/20 15:34 Hgb 16.8 g/dL (14.0-18.0) 07/18/20 15:34 Hct 51.9 % (42.0-52.0) 07/18/20 15:34 MCV 98.9 fL (78.0-98.0) H 07/18/20 15:34 Plt Count 269 thou/uL (130-400) 07/18/20 15:34 Neutrophils % 71.6 % (42.0-75.0) 07/18/20 15:34 Sodium 142 mmol/L (136-145) 07/18/20 15:34 Potassium 4.3 mmol/L (3.5-5.1) 07/18/20 15:34 Chloride 103 mmol/L (98-107) 07/18/20 15:34 Carbon Dioxide 26 mmol/L (23-31) 07/18/20 15:34 BUN 17 mg/dL (8.4-25.7) 07/18/20 15:34 Creatinine 1.37 mg/dL (0.7-1.3) H 07/18/20 15:34 Glucose 135 mg/dL (80-115) H 07/18/20 15:34 Calcium 9.3 mg/dL (7.8-10.44) 07/18/20 15:34 Total Bilirubin 0.5 mg/dL (0.2-1.2) 07/18/20 15:34 AST 21 U/L (5-34) 07/18/20 15:34 ALT 30 U/L (8-55) 07/18/20 15:34 Alkaline Phosphatase 99 U/L (40-110) 07/18/20 15:34 B-Natriuretic Peptide 42.2 pg/mL (0-100) 07/18/20 15:54 Serum Total Protein 7.1 g/dL (5.8-8.1) 07/18/20 15:34 Albumin 4.2 g/dL (3.4-4.8) 07/18/20 15:34 Lipase 46 U/L (8-78) 07/18/20 15:34 - EKG Interpretation EKG: Initial EKG: SVT in 150-170s, no ST changes Post/adenosine EKG: EKG has monomorphic p waves, a regular rhythm at about 100bpm, no st changes or QRS abnormalities FMR H&P: A/P - Plan Paroxysmal SVT, with unknown cause Suspected 2/2 Hypovolemia vs Infectious source vs Drug Use, R/o ACS, PE, Structural Abnormality Converted to Sinus Tachycardia with 6mg IVP of adenosine, no arrhythmia or ST changes on EKG Labs significant for elevated WBC count, mild elevation of Creatinine - Ordered UA, procal - TSH, a1c, lipid panel to risk stratify - DD ordered - Echo ordered - UDS ordered - will give 1L IVF, as patient appears dry - consider cards consult in am if no other cause identified KAREN, suspected 2/2 hypovolemia Cr 1.37, previously 0.98 in 12/2019 - 1L IVFs - am BMP HTN - resume home meds HLD - resume home meds Hx CVA, Spinocerebellar Ataxia - aware PCP: Bam Beckett - TAMP DVT PPx: RADHA 3 - SCDs placed Fluids: 1L IVFs Dispo: admit tele obs, LOS <48 hours FMR H&P: Upper Level - Plan Date/Time: 07/18/20 1705 I, Bear Beckett DO, have evaluated this patient and agree with findings/plan as outlined by market research intern resident. Pertinent changes/additions are listed here. 70 yo M presents with palpitations, pmhx sig for SCA and htn He reports earlier today he was watching TV when he suddenly had chest pain and palpitations. he reports this has happened once before 8 years ago without a known cause. he denies any recent medication changes, sob, dysuria, fever, chills, joint pain, intolerance to hot or cold, diarrhea or vomiting. he endorses marijuana use daily. In the ED he was noted to be in SVT, 6mg of adenosine converted him to sinus tach. labs sig for elevated wbc count and mild elevation in cr. cxr wnl. on my exam he reports he feels totally fine now. EKG has monomorphic p waves, a regular rhythm at about 100bpm, no st changes or QRS abnormalities. paroxysmal svt resolved, now sinus tach. evaluate for underlying cause, will give 1L as he is dry appearing on exam. consider cards consult in AM if no other cause is identified by our workup. admit to tele obs for ELOS<48hrs. Addendum - Attending - Attending Attestation Date/Time: 07/18/20 241 I personally evaluated the patient and discussed the management with Dr. Batista I agree with the History, Examination, Assessment and Plan documented above with any addition or exceptions noted below. 70 yo male with cardiovascular risk and disease presents for SVT. After dose of adenosine is in sinus tachycardia. Will obs overnight on tele. Continue IVFs due to associated dehydration. Would add beta lew to regiment. Due to BP might have to adjust ACEI down to 5 mg if remains low. Due to neurological events in the past could have affect on SVR. ECHO pending. Trend trops to rule out ischemia. Cards in AM if available otherwise outpatient follow up. Emely
[2020-07-18 17:43] LABS: Hemoglobin A1c 5.5 % (4.0-6.0)
[2020-07-18 17:55] LABS: Cardiac Risk 2.9 (Less than 4.5)
[2020-07-18] MEDS ORDERED: Ondansetron ODT 4 MG TAB PO PRN (18:52)
[2020-07-18] MEDS ORDERED: Acetaminophen 650 MG Suppository PR PRN (18:52)
[2020-07-18] MEDS ORDERED: Ondansetron PF 4 MG/2 ML Vial IVP PRN (18:52)
[2020-07-18] MEDS ORDERED: Acetaminophen 325 MG TAB PO PRN (18:52)
[2020-07-18 19:27] LABS: Troponin I 0.026 ng/mL (< 0.028)
[2020-07-18 21:01] VITALS: BMI 32.2
[2020-07-18] MEDS: Lactated Ringer's 1,000 ML IV SCH (21:43)
[2020-07-18 22:40] LABS: Troponin I 0.032 ng/mL (< 0.028)
[2020-07-18 23:04] LABS: Magnesium 2.1 mg/dL (1.6-2.6); Phosphorus 3.8 mg/dL (2.3-4.7)
[2020-07-19 01:34] LABS: Bilirubin Negative (Negative); Blood, Urine Negative (Negative); Clarity Clear (Clear); Glucose, Urine (Dipstick) Normal (Negative); Ketone, Urine Negative (Negative); Leukocyte Negative Leu/uL (Negative); Nitrite Negative (Negative); Protein, Urine (Dipstick) Negative (Neg-Trace); Specific Gravity, Urine 1.016 (1.002-1.036); Urobilinogen Normal mg/dL (Less than 2)
[2020-07-19 01:43] LABS: Amphetamine Not Detected (NotDetected); Barbiturates Screen Not Detected (NotDetected); Benzodiazepine Screen Not Detected (NotDetected); Cocaine Metabolite Screen Not Detected (NotDetected); Medtox Control Line Valid? VALID (VALID); Medtox Reader # READER 4; Methadone Not Detected (NotDetected); Methamphetamine Not Detected (NotDetected); Opiate Screen Not Detected (NotDetected); Oxycodone Screen Not Detected (NotDetected); Phencyclidine (PCP) Not Detected (NotDetected); THC/Cannabinoid Screen Detected (NotDetected); Tricyclic Screen Not Detected (NotDetected)
[2020-07-19] MEDS: Lactated Ringer's 1,000 ML IV SCH ×2 (04:29→09:53)
[2020-07-19 04:59] LABS: Anion Gap 13 mmol/L (10-20); BUN (Urea Nitrogen) 14 mg/dL (8.4-25.7); Calc. Creatinine Clearance 117 mL/min (70-130); Calcium 8.4 mg/dL (7.8-10.44); Carbon Dioxide 25 mmol/L (23-31); Chloride 107 mmol/L (98-107); Glucose 109 mg/dL (80-115); Potassium 3.9 mmol/L (3.5-5.1); Sodium 141 mmol/L (136-145)
[2020-07-19 05:10] LABS: Band 2 % (5-11); Eosinophils 6 % (0-10); Hemoglobin 13.9 g/dL (14.0-18.0); Lymphocytes 17 % (21-51); MDiff Complete? YES; Mean Corpuscular HGB CONC 32.4 g/dL (32.0-36.0); Mean Corpuscular Hemoglobin 31.2 pg (27.0-31.0); Mean Corpuscular Volume 96.1 fL (78.0-98.0); Mean Platelet Volume 7.8 fL (7.4-10.4); Monocytes 4 % (0-10); Neutrophil 70 % (42-75); Platelet Count 202 thou/uL (130-400); RBC Distribution Width 11.9 % (11.5-14.5); Reactive Lymphocytes 1 % (0-10); Red Blood Cell (RBC) Count 4.46 mill/uL (4.70-6.10); White Blood Cell (WBC) Count 10.1 thou/uL (4.8-10.8)
[2020-07-19 05:48] LABS: SARS-CoV-2 MS2 Positive; SARS-CoV-2 N Gene Negative; SARS-CoV-2 S Gene Negative; SARS-CoV-2 by NAA Not Detected (NotDetected); SARS-CoV-2 orf1ab Negative
--- NOTE | 2020-07-19 06:48 | PDOC.FM ---
- Subjective Subjective: Patient is resting comfortably in bed. No concerns, no acute events overnight. Denies chest pain, shortness of breath, palpitations, abdominal pain, N/V. - Objective MAR Reviewed: Yes Vital Signs & Weight: Vital Signs (12 hours) Temp Pulse Resp BP Pulse Ox 07/19/20 03:35 98.7 F 74 18 123/76 94 L 07/18/20 23:14 88 07/18/20 20:23 98.7 F 85 16 114/74 95 Weight Weight 99.065 kg I&O: 07/17/20 07/18/20 07/19/20 06:59 06:59 06:59 Intake Total 1640 Output Total 350 Balance 1290 Result Diagrams: 07/19/20 04:19 07/19/20 04:19 Phys Exam - Physical Examination Constitutional: NAD HEENT: PERRLA, moist MMs Respiratory: no wheezing, clear to auscultation bilateral Cardiovascular: RRR, no significant murmur Gastrointestinal: soft, non-tender, positive bowel sounds Musculoskeletal: no edema Neurological: non-focal, moves all 4 limbs Psychiatric: normal affect, A&O x 3 Skin: no rash Dx/Plan - Plan Plan: Paroxysmal SVT, with unknown cause Suspected 2/2 Hypovolemia, R/o Structural Abnormality Converted to Sinus Tachycardia with 6mg IVP of adenosine, no arrhythmia or ST changes on EKG Labs significant for elevated WBC count, mild elevation of Creatinine UA, TSH wnl, UDS + Cannabinoids a1c = 5.5%, lipid panel: TGs 214 DD 0.27 - Echo ordered - consider cards curbside to determine if they recommend cards eval inpatient vs outpatient KAREN, resolved Cr 1.37 --> 0.85 s/p 2L IVFs 07/18 - resolved HTN - resume home meds HLD - resume home meds Hx CVA, Spinocerebellar Ataxia - aware PCP: Bam Beckett - TAMP DVT PPx: RADHA 3 - SCDs placed Fluids: SL Dispo: admit tele obs, LOS <48 hours Addendum - Attending - Attending Attestation Date/Time: 07/19/20 1118 I personally evaluated the patient and discussed the management with Dr. Batista. I agree with the History, Examination, Assessment and Plan documented above with any addition or exceptions noted below. Patient feeling well, will discuss his pSVT with EP and further mgmt pending their recommendations. No further episodes on telemetry.
[2020-07-19] MEDS ORDERED: Metoprolol Tartrate 25 MG TAB PO SCH (08:00)
[2020-07-19] MEDS ORDERED: Aspirin 81 mg Enteric Coated Tablet PO SCH (09:00)
[2020-07-19] MEDS ORDERED: Tamsulosin HCl 0.4 MG CAP PO SCH (09:00)
[2020-07-19] MEDS ORDERED: Lisinopril 10 MG TAB PO SCH (09:00)
[2020-07-19 11:20] VITALS: BP 138/78; TEMP 98.2
[2020-07-19 11:47] LABS: Troponin I 0.015 ng/mL (< 0.028)
[2020-07-19] MEDS ORDERED: Atorvastatin Calcium 40 MG TAB PO SCH (21:00)
--- NOTE | 2020-07-20 13:50 | DIS ---
DATE OF ADMISSION: 07/18/2020 DATE OF DISCHARGE: 07/19/2020 ADMITTING ATTENDING: Dami Strange MD DISCHARGE ATTENDING: Matias Dan MD RESIDENT: Shelia Batista DO CONSULTS: None. PROCEDURES: None. PRIMARY DIAGNOSES: Paroxysmal supraventricular tachycardia, suspected 2/2 hypovolemia. SECONDARY DIAGNOSES: Acute kidney injury, resolved; hypertension; hyperlipidemia; history of cerebrovascular accident; spinocerebellar ataxia. DISCHARGE MEDICATIONS: 1. Metoprolol succinate 12.5 mg p.o. daily, 30 days. 2. Acetaminophen 325 mg p.o. p.r.n. 3. Aspirin 81 mg p.o. daily. 4. Atorvastatin 40 mg p.o. at bedtime. 5. Lisinopril 10 mg p.o. daily. 6. Tamsulosin HCL 0.4 mg p.o. daily. DISCONTINUED MEDICATIONS: None. HISTORY OF PRESENT ILLNESS/HOSPITAL COURSE: This patient is a 70-year-old male, who presented to the ED with palpitations starting around 11 a.m. and some centralized chest pain, shortness of breath, swelling, and nausea.. When he arrived, he was found to be in SVT in the 150s to 170s. He was given a push of 6 mg of adenosine and then he was given a liter of fluid, and successfully cardioverted into sinus tachycardia with no arrhythmia. The patient was admitted to [facility]. He had a mild elevation of creatinine. A1c was 5.5. Lipid panel showed triglycerides of 214. UDS was positive for cannabinoids. D-dimer was 0.27. An echo was ordered. The patient's creatinine resolved. Echo showed an EF of 50-55%. Dr. Rosas was curbsided, asked if he would rather see the patient inpatient or outpatient. He said outpatient followup in the next week was adequate. Recommended starting on a beta-lew in the interim. The patient was discharged stable, in sinus rhythm with metorpolol 12.5mg daily. DISPOSITION: Stable. DISCHARGE INSTRUCTIONS: 1. Location: Home. 2. Diet: Regular. 3. Activity: Ad marlo. 4. Follow up with RASHEEDA, Dr. Rosas in the next 7 to 14 days. Follow up with your primary care physician in 7 to 14 days. Job ID: [id number] [facility]
== END 2020-07-19 15:40 | disposition home or self-care (01) ==
LOC: ERS 14:30 → 2NO 16:44
PROVIDERS: ADMIT Family Medicine; ATTEND Family Medicine
DX: I47.1 Supraventricular tachycardia (principal); N17.9 Acute kidney failure, unspecified; I10 Essential (primary) hypertension; E78.5 Hyperlipidemia, unspecified; G11.19 Other early-onset cerebellar ataxia; Z79.82 Long term (current) use of aspirin; Z79.899 Other long term (current) drug therapy; Z86.73 Personal history of transient ischemic attack (TIA), and cerebral infarction without residual deficits; Z91.018 Allergy to other foods; Z20.828 Contact with and (suspected) exposure to other viral communicable diseases
CPT/HCPCS: 71045; 80048; 80061; 80306; 81003; 83036; 83690; 83735; 83880; 84100; 84484 ×3; 85007; 85027; 85379; 93005; 93306; 96374; 99285; G0378 ×3; U0003; 36415; 80053; 84443; 85025; 87635; J0153

== ENCOUNTER 2020-11-02 12:51 | Outpatient (CLI) | payer MEDICARE ==
[2020-11-02 13:58] LABS: Anion Gap 13 mmol/L (10-20); BUN (Urea Nitrogen) 14 mg/dL (8.4-25.7); Calc. Creatinine Clearance 0 mL/min (70-130); Calcium 9.3 mg/dL (7.8-10.44); Carbon Dioxide 27 mmol/L (23-31); Chloride 104 mmol/L (98-107); Glucose 107 mg/dL (80-115); Potassium 4.6 mmol/L (3.5-5.1); Sodium 139 mmol/L (136-145)
[2020-11-02 14:14] LABS: Mean Corpuscular HGB CONC 33.7 g/dL (32.0-36.0); Mean Corpuscular Hemoglobin 31.5 pg (27.0-33.0); Mean Corpuscular Volume 93.5 fl (81.2-95.1); Mean Platelet Volume 10.8 fl (7.4-10.4); Platelet Count 218 10x3/uL (150-450); RBC Distribution Width 12.6 % (11.5-14.5); Red Blood Cell (RBC) Count 4.76 10x6/uL (4.32-5.72); White Blood Cell (WBC) Count 9.9 10x3/uL (3.5-10.5)
[2020-11-02 15:02] LABS: PTT 25.9 sec (22.0-33.0); Prothrombin Time 10.9 sec (9.5-12.1)
[2020-11-03 13:09] LABS: SARS-CoV-2 PCR by NAA Not Detected (NotDetected)
== END 2020-11-02 12:52 | disposition home or self-care (01) ==
LOC: LABBT 12:51
PROVIDERS: ATTEND Internal Medicine Cardiovascular Disease
DX: Z01.818 Encounter for other preprocedural examination (principal); Z20.822 Contact with and (suspected) exposure to COVID-19
CPT/HCPCS: 80048; 85027; 85610; 85730; U0003; U0005; 87635; 93005; 93010

== ENCOUNTER 2020-11-07 05:49 | Day surgery (SDC) | payer MEDICARE ==
[2020-11-03 12:12] VITALS: BMI 31.0
[2020-11-07] MEDS ORDERED: Heparin 10,000 UNITS/ 10 ML VIAL ONE (06:37)
[2020-11-07] MEDS ORDERED: Fentanyl 100 MCG/2 ML VIAL ONE (06:45)
[2020-11-07] MEDS ORDERED: Propofol 1,000 MG/100 ML VIAL IV ONE (07:03)
[2020-11-07] MEDS ORDERED: PROPOFOL 200 MG/20 ML VIAL ONE (07:53)
[2020-11-07] MEDS ORDERED: Lidocaine 1% PF 5 ML VIAL ONE (07:53)
[2020-11-07] MEDS ORDERED: PHENYLEPHRINE-NS 100 MCG/ML 10 ML SYRINGE ONE (07:53)
[2020-11-07] MEDS ORDERED: Isoproterenol 0.2 MG/1 ML AMP ONE (08:38)
== END 2020-11-07 14:18 | disposition home or self-care (01) ==
LOC: SDC 05:49
PROVIDERS: ATTEND Internal Medicine Cardiovascular Disease
PROC: 02583ZZ Destruction of Conduction Mechanism, Percutaneous Approach (ICD-10-PCS; principal; 2020-11-07)
PROC: 02K83ZZ Map Conduction Mechanism, Percutaneous Approach (ICD-10-PCS; 2020-11-07)
PROC: 4A023FZ Measurement of Cardiac Rhythm, Percutaneous Approach (ICD-10-PCS; 2020-11-07)
PROC: 4A0234Z Measurement of Cardiac Electrical Activity, Percutaneous Approach (ICD-10-PCS; 2020-11-07)
DX: I47.1 Supraventricular tachycardia (principal); I08.1 Rheumatic disorders of both mitral and tricuspid valves; E78.00 Pure hypercholesterolemia, unspecified; E07.9 Disorder of thyroid, unspecified; I10 Essential (primary) hypertension; G11.19 Other early-onset cerebellar ataxia; Z86.73 Personal history of transient ischemic attack (TIA), and cerebral infarction without residual deficits; Z87.891 Personal history of nicotine dependence; Z79.82 Long term (current) use of aspirin; Z79.899 Other long term (current) drug therapy; Z91.018 Allergy to other foods
CPT/HCPCS: 76942; 93005; 93613; 93623; 93653; C1730 ×2; C1732 ×2; 93010; J1644; J2704; J3010

== ENCOUNTER 2023-01-23 12:56 | Outpatient (CLI) | payer MEDICARE | END 2023-01-23 12:57 | disposition home or self-care (01) | LOC: BICRAD 12:56 | PROVIDERS: ATTEND Student in an Organized Health Care Education/Training Program | DX: M76.61 Achilles tendinitis, right leg (principal) ==